=== PATIENT | female | born 1960 | race Caucasian/White ===

== ENCOUNTER 2017-01-03 06:19 | Emergency (ER) | payer MEDICARE, MEDICAID ==
[~2017-01-03] VITALS: Ht 172.7 cm; Wt 65.0 kg
--- NOTE | 2017-01-03 06:21 | ED.REPORT ---
HPI-Chest Pain 40 and Over Date of Service Jan 03, 2017 ED Provider: The patient is a 56 year old female with history of hypertension who was brought to the emergency department complaining of chest pain that woke her from sleep around 0330. Her pain was located to her epigastric region and radiated through to her back and up into her shoulders. The pain became progressively worse for at least 10-15 minutes. She also noticed diaphoresis. Her pain was not improved or exacerbated with anything. She took an aspirin this morning and was given nitroglycerin by medics. She believes her pain was minimally improved with these treatments. At this time she is not in any pain. She has not had similar symptoms in the past. She denies burning in her throat, acidic taste in her mouth, fever, chills, vomiting or diarrhea. She denies history of cardiac disease, cardiac stents, heart attack, COPD, or blood clots. She denies recent long periods of immobilization, surgeries, or hormone treatments. Nursing Notes Stated Complaint: CHEST PAIN Chief Complaint: Chest Pain Nursing Notes Reviewed: Yes Allergies: Coded Allergies: Penicillins (Verified Allergy, Severe, Rash,Itching,, 01/03/17) Uncoded Allergies: TOMATO (Allergy, Severe, Hives, 01/03/17) Scheduled Omeprazole (Omeprazole) 20 Mg Tablet. 20 MG PO BID General Time Seen by MD: 06:21 Chief Complaint Chest pain Hx Obtained From: Patient, EMS Arrived By: Ambulance Sudden in Onset?: Yes Onset Occurred: 16 - 30 minutes ago Symptom Duration: Since onset Location: : Epigastric Quality: Painful Radiation: : Back: Shoulder left: Shoulder right Migration/Movement: Reports: None Severity: Current: No pain currently Severity: Maximum: Severe Recent Healthcare: No recent doctor visit, No recent hospitalization Similar Sx Previous: No Past Medical History Past Medical History Hypertension Bipolar ADHD Family History Noncontributory Ambulatory Status Independent Review of Systems Constitutional: Denies: Chills, Fever Cardiovascular: Reports: Chest pain GI: Denies: Diarrhea, Vomiting Skin: Reports Diaphoresis, Denies Rash Complete sys rev & neg: except as marked. Physical Exam Initial Vital Signs Vital Signs (First) Date Time Temp Pulse Resp B/P Pulse Ox O2 Delivery O2 Flow Rate FiO2 01/03/17 06:23 36.6 74 19 145/84 100 Room Air Initial VS: Reviewed Head / Eyes: Atraumatic, Normocephalic, PERRL ENT: Mucous membranes moist, Conjunctiva normal, No scleral icterus Neck: Supple, Non-tender, Full range of motion Lymphatic: No lymphadenopathy Extremities: Vascular intact, Neuro intact, No swelling, No tenderness Skin: Warm, Dry, No cyanosis Neurologic: Alert, Oriented, Nonfocal Psychiatric: Mood/affect normal, Behavior normal, Normal thought content General/Constitutional: Awake, Alert, No acute distress, Well appearing, Cooperative Respiratory / Chest: Atraumatic, Breath sounds NL, Breath sounds = bilat, No respiratory distress, No rales, No rhonchi, No wheezing, No stridor, No chest tenderness, No chest wall deformity Cardiovascular: Heart rate NL, Regular rhythm, Heart sounds NL, No gallop, No murmurs, No rubs, Peripheral circulation NL, Pulses = bilaterally, No gross BP differential Good radial pulses Abdomen: Atraumatic, Soft, Non-tender, McBurney's non-tender, No guarding, No rebound, BS normoactive, No distention, No hernia, No palpable mass Lower Extremity / Pelvis / MS: Neurologic intact, Vascular intact No calf swelling or tenderness Interpretation & Diagnostics Lab Results Interpretation Test 01/03/17 08:44 Troponin T 0.010ug/L (0.0-0.011) ECG Interpretation ECG Interpretation: Sinus rhythm with a rate of 61 bpm Normal axis Normal intervals No ST segment changes Q waves present in the anteroseptal leads No T wave abnormalities No prior available for comparison Time: 06:14 Interpreted by: ED physician X-Ray Chest Interpretation Chest Xray Interpretation: IMPRESSION: No acute pulmonary process. Dictated by: Emelyn Rodrigues M.D. on 01/03/2017 at 8:23 Interpretation / Wet Read by: Interpret - Radiologist Re-Eval/Medical Decision Med Decision/Clinical Course The patient is a 56 year old female with history of hypertension who was brought to the emergency department complaining of chest pain that woke her from sleep around 0330. Her pain was located to her epigastric region and radiated through to her back and up into her shoulders. The pain became progressively worse for at least 10-15 minutes. Acute emergency department the patient is chest pain free and without any complaints. She is afebrile with stable vital signs and in no apparent distress. EKG obtained and interpreted by myself as documented above. CXR: Obtained, reviewed and interpreted by myself shows no evidence of acute infiltrates, effusions or pneumothorax. Cardiac and mediastinal silhouette normal. No bony or soft tissue abnormalities. LABS: No leukocytosis, hct 36.4, neut% 63.2, potassium 3.7, good renal function , otherwise no significant electrolyte abnormalities, mildly elevated transaminases, troponin negative, repeat troponin negative. Patient remained chest pain-free here in the emergency Department without any complaints. Serial troponins were negative. Overall presentation unconvincing for acute coronary syndrome. I reassured the patient has now had nonischemic EKG and serial negative troponins without any active chest pain. Presentation and risk factors unconvincing for pulmonary embolism. I do not feel that PE workup is indicated at this time. Patient stated that she felt better and would like to go home. I feel that this is appropriate. Overall clinical picture seems most consistent with acid reflux. She will be started on a trial of omeprazole. She will follow up with a primary care physician in the next week. Follow-up and return precautions were reviewed in detail and she was discharged in good condition. Source of Hx: Old records, EMS Time of Eval: 06:33 Re-Evaluation/Progress Note: Discussed plan for workup. All questions were addressed. Time of Eval: 09:52 Re-Evaluation/Progress Note: Rechecked the patient. Discussed results, diagnosis, and plan for discharge. All questions were addressed. Counseled Regarding: Diagnosis, Lab results, Need for follow-up, When/why to return to ED Discharge & Departure Primary Impression: Acid reflux Esophagitis presence: without esophagitis Qualified Code: K21.9 - Gastro- esophageal reflux disease without esophagitis Additional Impression: Chest pain Chest pain type: unspecified Qualified Code: R07.9 - Chest pain, unspecified Disposition: Home Discharge Condition All VS Reviewed: Yes Condition: Stable Patient Instructions: Gastroesophageal Reflux Disease (ED) Additional Instructions: Thank you for seeking care at the emergency room. It is difficult for us to make definitive diagnoses in the ED but we believe that you are experiencing acid reflux. Our primary goal today in the ED was to evaluate you for any life-threatening conditions. Your evaluation was reassuring. You will be discharged with a prescription for omeprazole. Avoid eating within 2-3 hours of going to bed. Avoid any Ibuprofen or other NSAID medications. Avoid alcohol. You should follow-up with a primary doctor in the next week. We have given you a referral to the residency clinic. Call on Thursday to schedule an appointment. You should return to the ED immediately if you develop increased chest pain, shortness of breath, palpitations, vomiting, lightheadedness, weakness or any other concerning signs or symptoms. Thank you for letting us partake in your care today. Referrals: [facility] Scribe Attestation Portions of this note were transcribed by Shira Nam. I, Dr. Biggs personally performed the history, physical exam and medical decision-making; I reviewed and confirmed the accuracy of the information in the transcribed note. Signed by: Haleigh Jurado, 01/03/2017 and Brendon Bergeron MD Jan 03, 2017 06:21 Shira Nam Jan 03, 2017 06:23
[2017-01-03 06:23] VITALS: BP 145/84; PULSE 74; RESP 19; O2SAT 100
[2017-01-03 06:31] VITALS: BP 145/84; PULSE 74; RESP 19; O2SAT 100
[2017-01-03] MEDS ORDERED: Donnatal-Lido-Mylant 1:1:1 15 mL Syringe PO ONE (06:35)
[2017-01-03] MEDS ORDERED: LidocaineVisc 2%:Antacid 1:1 10 mL Syringe PO ONE (06:35)
--- NOTE | 2017-01-03 08:25 | DRSVH ---
PROCEDURE: X-RAY CHEST ONE VIEW, PORTABLE ([id number]) INDICATIONS: cp TECHNIQUE: One view of the chest was acquired. COMPARISON: None. FINDINGS: Surgical changes and devices: None. Lungs and pleura: No pleural effusions or pneumothorax. Lungs are clear. Mediastinum: Mediastinal contours appear normal. Heart size is normal. Bones and chest wall: No suspicious bony lesions. Overlying soft tissues appear unremarkable. IMPRESSION: No acute pulmonary process. Dictated by: Emelyn Rodrigues M.D. on 01/03/2017 at 8:23 Approved by: Emelyn Rodrigues M.D. on 01/03/2017 at 8:23
[2017-01-03 09:35] VITALS: BP 127/69; PULSE 62; RESP 15; O2SAT 100
[2017-01-03] MEDS ORDERED: OMEP20TA86 PO (09:57)
[2017-01-03 10:02] VITALS: BP 123/73; PULSE 62; RESP 17
[2017-01-03 10:18] VITALS: BP 123/73; PULSE 62; RESP 17; O2SAT 100
== END 2017-01-03 10:18 | disposition home or self-care (01) ==
LOC: EDBD 06:19 → SED 06:46
DX: K21.9 Gastro-esophageal reflux disease without esophagitis (principal); R07.9 Chest pain, unspecified; I10 Essential (primary) hypertension; Z88.0 Allergy status to penicillin